=== PATIENT | male | born 1960 | race Caucasian/White ===

== ENCOUNTER → 2019-05-20 | Outpatient (CLI) | payer OTHER ==
--- NOTE | 2019-05-20 14:32 | PCVCIMAG ---
APPROVED REPORT Study performed: 05/20/2019 10:46:21 Exam: Stress Echocardiogram Indication: syncopal episode Patient Location: Echo lab Stress Nurse: Linda Winn RN Status: routine Ht: 6 ft 0 in HR: 76 bpm BP: 110/80 mmHg Rhythm: NSR Medical History Medical History: HTN Procedure The patient underwent an Exercise Stress Test using the Wang Protocol. Blood pressure, heart rate, and EKG were monitored. An Echocardiogram was performed by two way radio technician in four stages in quad fashion. At peak stress, four selected images were obtained and placed side by side with resting images for comparison. Stress Test Details Stress Test: Exercise stress testing was performed using a Wang protocol. HR Resting HR: 76 bpmMax Heart Rate (APMHR): 164 bpm Max HR Achieved: 184 bpmTarget HR (85% APMHR): 139 bpm % of APMHR: 112 Recovery HR: 104 bpm HR response to stress: Normal HR response to stress BP Resting BP: 110/80 mmHg Max BP: 176/82 mmHg Recovery BP: 134/82 mmHg BP response to stress: Normal blood pressure response to stress. ECG Resting ECG: Sinus Rhythm Stress ECG: Sinus Rhythm Recovery ECG: Sinus Rhythm Clinical Reason for Termination: Maximal effort Exercise duration: 16 min 02 sec Highest Stage Achieved: Stage 6: 5.5 mph at 20% grade. Exercise capacity: 20.30 METs Overall Exercise Capacity for Age: Excellent Stress ECG Conclusion 1. Subjectively negative for ischemia 2. Echocardiographically negative for ischemia Pre-Stress Echo The resting Echocardiogram showed normal left ventricular contractility with an estimated Ejection Fraction of about 55-60%. Post-Stress Echo The stress Echocardiogram showed normal left ventricular contractility with an estimated Ejection Fraction of about 60-65%. Conclusion Clinical Response: Non-ischemic Exercise Capacity: Superior Stress ECG Response: Non-ischemic Stress Echo Images: Non-ischemic No significant valvular abnormalities. Sinus of valsalva measures 4.0cm. 1. Low risk study Other Information Study Quality: Good <Conclusion> No significant valvular abnormalities. Sinus of valsalva measures 4.0cm. 1. Low risk study
== END | disposition home or self-care (01) ==
LOC: PCVCIMAG 10:28
PROVIDERS: ATTEND Internal Medicine
DX: I10 Essential (primary) hypertension (principal); E78.5 Hyperlipidemia, unspecified; R55 Syncope and collapse; G47.30 Sleep apnea, unspecified; Z83.3 Family history of diabetes mellitus; Z82.49 Family history of ischemic heart disease and other diseases of the circulatory system; Z80.3 Family history of malignant neoplasm of breast; Z72.89 Other problems related to lifestyle; Z91.048 Other nonmedicinal substance allergy status
CPT/HCPCS: 93325; 93351